=== PATIENT | male | born 1970 | race Two or more races ===

== ENCOUNTER 2023-03-21 11:00 | Emergency (ER) | payer MEDICAID ==
[~2023-03-21] VITALS: Ht 162.6 cm; Wt 86.5 kg
[2023-03-21] MEDS ORDERED: LABETALOL HCL 5 MG/ML 4ML SYRINGE IV ONE ×2 (11:30→13:45)
[2023-03-21] MEDS ORDERED: ONDANSETRON HCL 4 MG/2 ML VIAL IV ONE ×2 (11:30→13:30)
[2023-03-21 11:38] LABS: Basophils # (auto) 0.1 10 ^3/uL (0-0.2); Eosinophils # (auto) 0.1 10 ^3/uL (0-0.8); Mean Corpuscular Hemoglobin 32.1 pg (28.0-32.0); Mean Corpuscular Hgb Conc. 34.7 g/dL (32.0-36.0); Red Cell Distribution Width 13.4 % (11.8-14.3)
[2023-03-21 11:40] LABS: Basophils % (auto) 0.7 % (0.0-2.0); Eosinophils % (auto) 0.6 % (0.0-7.0); Hematocrit 55.8 % (41.0-53.0); Hemoglobin 19.4 g/dL (13.5-17.5); Lymphocytes % (auto) 28.5 % (10.0-50.0); Mean Corpuscular Volume 92.5 fL (80.0-100.0); Monocytes # (auto) 0.8 10 ^3/uL (0-1.3); Monocytes % (auto) 7.5 % (0.0-12.0); Neutrophils # (auto) 6.6 10 ^3/uL (1.6-8.6); Neutrophils % (auto) 62.7 % (37.0-80.0); Nucleated Red Blood Cells % 0.3 %; Red Blood Cells 6.04 10^6/uL (4.5-5.90); White Blood Cell 10.5 10^3/uL (4.4-10.8)
[2023-03-21 12:17] LABS: Potassium 3.9 mmol/L (3.5-5.1)
[2023-03-21 12:25] LABS: Albumin 4.5 g/dL (3.4-5.0); BUN/Creatinine Ratio 11.7 (10.0-20.0); Bilirubin, Total 0.8 mg/dL (0.2-1.0); Calcium 9.4 mg/dL (8.5-10.1); Total Protein 8.5 g/dL (6.4-8.2)
[2023-03-21 12:29] LABS: Urine Bacteria NONE SEEN /hpf (None Seen); Urine Blood TRACE /uL (Negative); Urine Specific Gravity 1.018 (1.001-1.035); Urine WBC 1 /hpf (0 - 3)
[2023-03-21] MEDS ORDERED: CIPROFLOXACIN HCL 500 MG TAB PO ONE (13:30)
[2023-03-21] MEDS ORDERED: metroNIDAZOLE 500 MG TAB PO ONE (13:30)
[2023-03-21] MEDS ORDERED: ZOFR4T PO (13:34)
[2023-03-21] MEDS ORDERED: HYDR-4902 PO (13:34)
[2023-03-21] MEDS ORDERED: CIPR-173 PO (13:34)
[2023-03-21] MEDS ORDERED: METR-344 PO (13:34)
[2023-03-21] MEDS ORDERED: LISI40TA16 PO (14:17)
[2023-03-21 14:59] VITALS: BP 157/122
== END 2023-03-21 14:59 | disposition home or self-care (01) ==
LOC: ER 11:00
DX: K57.92 Diverticulitis of intestine, part unspecified, without perforation or abscess without bleeding (principal); I16.0 Hypertensive urgency; I10 Essential (primary) hypertension; Z88.0 Allergy status to penicillin
CPT/HCPCS: 36415; 74176; 80053; 81001; 83605; 83690; 84484; 85025; 93005; 96374; 96375; 96376; 99285; J2405; J3490

== ENCOUNTER 2023-07-18 17:40 | Emergency (ER) | payer MEDICAID ==
[~2023-07-18] VITALS: Ht 165.1 cm; Wt 84.0 kg
[~2023-07-18 17:40] MED LIST: CIPR-173 PO; HYDR-4902 PO; LISI40TA16 PO; METR-344 PO; ZOFR4T PO
[2023-07-18 18:26] LABS: Urine Bacteria NONE SEEN /hpf (None Seen); Urine Blood Negative /uL (Negative); Urine Clarity Clear (Clear); Urine Color Yellow (Yellow); Urine Protein, UAD 2+ (Negative); Urine Specific Gravity 1.018 (1.001-1.035); Urine Urobilinogen Normal (Negative); Urine WBC <1 /hpf (0 - 3); Urine pH 7.5 (5.0-8.0)
[2023-07-18 18:49] LABS: Basophils # (auto) 0.1 10 ^3/uL (0-0.2); Basophils % (auto) 0.5 % (0.0-2.0); Eosinophils # (auto) 0 10 ^3/uL (0-0.8); Eosinophils % (auto) 0.4 % (0.0-7.0); Hematocrit 50.7 % (41.0-53.0); Hemoglobin 17.5 g/dL (13.5-17.5); Lymphocytes # (auto) 2.6 10 ^3/uL (0.4-5.4); Lymphocytes % (auto) 21.1 % (10.0-50.0); Mean Corpuscular Hemoglobin 32.5 pg (28.0-32.0); Mean Corpuscular Hgb Conc. 34.5 g/dL (32.0-36.0); Mean Corpuscular Volume 94.1 fL (80.0-100.0); Monocytes # (auto) 0.6 10 ^3/uL (0-1.3); Monocytes % (auto) 4.7 % (0.0-12.0); Neutrophils # (auto) 8.9 10 ^3/uL (1.6-8.6); Neutrophils % (auto) 73.3 % (37.0-80.0); Nucleated Red Blood Cells % 1.1 %; Red Blood Cells 5.39 10^6/uL (4.5-5.90); Red Cell Distribution Width 13.6 % (11.8-14.3); White Blood Cell 12.1 10^3/uL (4.4-10.8)
[2023-07-18 19:08] LABS: Alanine Aminotransferase 41 U/L (7-40); Albumin 4.9 g/dL (3.2-4.8); Alkaline Phosphatase 72 U/L (46-116); Anion Gap 8 (5-15); Aspartate Aminotransferase 33 U/L (13-40); BUN/Creatinine Ratio 15.1 (10.0-20.0); Blood Urea Nitrogen 16 mg/dL (9-23); Calcium 10.2 mg/dL (8.7-10.4); Carbon Dioxide 29 mmol/L (20-30); Chloride 99 mmol/L (98-107); Glucose 107 mg/dL (74-106); Lipase 43 U/L (12-53); Potassium 4.4 mmol/L (3.5-5.1); Sodium 136 mmol/L (136-145)
[2023-07-18 19:09] LABS: Bilirubin, Total 0.7 mg/dL (0.2-1.0); Total Protein 7.8 g/dL (5.7-8.2)
[2023-07-18] MEDS ORDERED: ONDANSETRON ODT 4 MG TAB PO ONE (20:45)
[2023-07-18] MEDS ORDERED: HYDROcodone-ACET 10/325MG TAB PO ONE (20:45)
[2023-07-18] MEDS ORDERED: IOHEXOL 350 MG/ML 100ML IJ ONE (20:51)
[2023-07-18 22:12] VITALS: BP 151/97
[2023-07-19 01:17] VITALS: PULSE 61; RESP 18; O2SAT 97
== END 2023-07-19 01:27 | disposition home or self-care (01) ==
LOC: ER 17:40
DX: R10.84 Generalized abdominal pain (principal); D72.828 Other elevated white blood cell count; K76.0 Fatty (change of) liver, not elsewhere classified; R73.9 Hyperglycemia, unspecified; I10 Essential (primary) hypertension; Z88.0 Allergy status to penicillin; Z79.899 Other long term (current) drug therapy
CPT/HCPCS: 36415; 74177; 80053; 81001; 83690; 85025; 99285; Q0162; Q9967